=== PATIENT | male | born 1985 | race Caucasian/White ===

== ENCOUNTER 2018-10-25 20:45 | Emergency (ER) | payer SELFPAY ==
[2018-10-25 21:53] LABS: Influenza A Molecular NEGATIVE (Negative); Influenza B Molecular NEGATIVE (Negative)
[2018-10-25] MEDS ORDERED: Ondansetron ODT TAB* 4 MG PO ONE (22:17)
--- NOTE | 2018-10-25 22:43 | UC ---
Nausea/Vomiting/Diarrhea HPI - HPI Summary HPI Summary: PATIENT REPORTS 5 DAYS OF NAUSEA AND DIARRHEA. STATES HE HAS LOOSE STOOLS ALMOST EVERY HOUR. HAD HIGH FEVER 104 INITIALLY BUT THAT IS IMPROVING. TEMPERATURE TODAY WAS 100. HAS MILD COUGH AND ALSO COMPLAINS OF BODY ACHES AND SENSITIVITY TO SOUND AND LIGHT. FEELS UNWELL OVERALL. APPETITE IS DOWN ALTHOUGH HE IS ABLE TO TOLERATE BY MOUTH. - History of Current Complaint Chief Complaint: UCGeneralIllness Stated Complaint: FEVER, AND ACHES Time Seen by Provider: 10/25/18 21:33 Hx Obtained From: Patient Onset/Duration: Gradual Onset, Lasting Days, Still Present Timing: Constant Severity Initially: Moderate Severity Currently: Moderate Pain Intensity: 7 Pain Scale Used: 0-10 Numeric Character: Cramping Aggravating Factor(s): Nothing Alleviating Factor(s): Nothing Nausea/Vomiting Presence: Nauseated Diarrhea Presence: Yes Diarrhea Frequency: Every 1-2 hours Diarrhea Duration: 3-7 days Diarrhea Characteristics: Watery - Allergies/Home Medications Allergies/Adverse Reactions: Allergies Allergy/AdvReac Type Severity Reaction Status Date / Time No Known Allergies Allergy Verified 10/25/18 21:11 PMH/Surg Hx/FS Hx/Imm Hx Previously Healthy: Yes Other History Of: Negative For: HIV, Hepatitis B, Hepatitis C - Surgical History Surgical History: None - Family History Known Family History: Positive: Non-Contributory - Social History Alcohol Use: Weekly Substance Use Type: None Smoking Status (MU): Former Smoker Length of Time of Smoking/Using Tobacco: 4 years When Did the Patient Quit Smoking/Using Tobacco: 10 years ago Review of Systems All Other Systems Reviewed And Are Negative: Yes Constitutional: Positive: Fever, Fatigue Eyes: Positive: Photophobia Respiratory: Positive: Cough Cardiovascular: Positive: Negative Gastrointestinal: Positive: Diarrhea, Nausea. Negative: Vomiting Musculoskeletal: Positive: Myalgia Physical Exam Triage Information Reviewed: Yes Appearance: No Pain Distress, Well-Nourished, Ill-Appearing - APPEARS FATIGUED Vital Signs: Initial Vital Signs Temp 96.8 F 10/25/18 21:03 Pulse 89 10/25/18 21:03 Resp 16 10/25/18 21:03 BP 131/81 10/25/18 21:03 Pulse Ox 99 10/25/18 21:03 Laboratory Tests 10/25/18 21:40 Influenza A (Rapid) Negative Influenza B (Rapid) Negative Vital Signs Reviewed: Yes Eyes: Positive: Conjunctiva Clear ENT: Positive: Hearing grossly normal, Pharynx normal, TMs normal Neck: Positive: Supple, Nontender, No Lymphadenopathy Respiratory Exam: Normal Cardiovascular Exam: Normal Abdomen Description: Positive: Soft, Other: - MILD TENDERNESS DIFFUSELY. NO REBOUND OR RIGIDITY. Negative: CVA Tenderness (R), CVA Tenderness (L), Distended, Guarding Bowel Sounds: Positive: Present Musculoskeletal: Positive: No Edema Neurological: Positive: Alert Psychological: Positive: Age Appropriate Behavior Skin: Negative: Rashes Naus/Vom/Diarrhea Course/Dx - Course Course Of Treatment: FLU SWAB NEGATIVE. WHILE IN THE UC PATIENT STATES THAT HE IS ACTUALLY STARTING TO FEEL BETTER. WHEN ASKED IF HE COULD LEAVE A STOOL SAMPLE HE PRODUCED A SOLID STOOL WHICH HE SAID WAS SURPRISING. HAVE SENT IT FOR TESTING. ZOFRAN FOR NAUSEA. CBC DRAWN TODAY. TO ER IF SX WORSEN. - Differential Dx/Diagnosis Provider Diagnosis: Acute diarrhea Condition At Discharge: Stable Discharge - Sign-Out/Discharge Documenting (check all that apply): Patient Departure All imaging exams completed and their final reports reviewed: No Studies - Discharge Plan Condition: Stable Disposition: HOME Prescriptions: Ondansetron ODT TAB* [Zofran Odt TAB*] 4 mg PO Q6H PRN #20 tab.odt PRN Reason: Nausea/Vomiting Patient Education Materials: Acute Diarrhea (ED), Viral Syndrome (ED) Referrals: Mario Chakraborty MD [Primary Care Provider] - Additional Instructions: FLU SWAB NEGATIVE. YOUR SYMPTOMS SEEM IMPROVED SINCE BEING HERE IN THE . HOPEFULLY YOU WILL CONTINUE TO IMPROVE OVER THE NEXT FEW DAYS. WE HAVE SENT YOUR STOOL FOR TESTING. CBC DRAWN. ZOFRAN FOR NAUSEA. ENSURE ADEQUATE HYDRATION. CLEAR LIQUIDS, BLAND DIET. AVOID CAFFEINE, DAIRY, GREASY, SPICY FOODS. ONCE YOU ARE TOLERATING CLEAR LIQUIDS YOU CAN ADVANCE TO SIMPLE, BLAND FOODS. GO TO THE ER IF YOU DEVELOP WORSENING FEVER, ABDOMINAL PAIN OR ARE UNABLE TO TOLERATE ANYTHING BY MOUTH OR IF ANY OTHER CONCERNING SYMPTOMS DEVELOP. - Billing Disposition and Condition Condition: STABLE Disposition: Home
[2018-10-25 22:58] VITALS: BP 134/77
[2018-10-26 10:22] LABS: Hematocrit 41 % (42-52); Hemoglobin 14.6 g/dl (14.0-18.0); Mean Corpuscular HGB Conc 35 g/dl (31-36); Mean Corpuscular Hemoglobin 32 pg (27-31); Mean Corpuscular Volume 89 fL (80-94); Mean Platelet Volume 9.7 fL (7.4-10.4); Platelet Count 120 10^3/ul (150-450); Red Blood Count 4.64 10^6/ul (4.00-5.40); Red Cell Distribution Width 12 % (10.5-15); White Blood Count 15.4 10^3/ul (3.5-10.8)
[2018-10-26 11:34] LABS: ABS Basophils 0.1 10^3/ul (0-0.2); ABS Eosinophils 0 10^3/ul (0-0.6); ABS Lymphocytes 1.4 10^3/ul (1.0-4.8); ABS Monocytes 1.2 10^3/ul (0-0.8); ABS Neutrophils 12.7 10^3/ul (1.5-7.7); ABS Nucleated RBC 0 10^3/ul; Eosinophil % 0 %; Lymphocyte % 9.2 %; Nucleated Red Blood Cells % 0.1
--- NOTE | 2018-10-26 16:02 | UC ---
- Progress Note Progress Note: Lab results and most of the stool results come back. WBC count is elevated at 15.4 thousand. All the stool results are negative but shiga toxin and stool culture are still pending. Nursing to call patient and ensure that he has not gotten any worse. If he has got worse he should seek medical attention if he continues the same hours improving then we will await the final stool culture and Shiga toxin results. Course/Dx - Diagnoses Provider Diagnoses: Acute diarrhea Discharge - Sign-Out/Discharge Documenting (check all that apply): Patient Departure All imaging exams completed and their final reports reviewed: No Studies - Discharge Plan Condition: Stable Disposition: HOME Prescriptions: Ondansetron ODT TAB* [Zofran Odt TAB*] 4 mg PO Q6H PRN #20 tab.odt PRN Reason: Nausea/Vomiting Patient Education Materials: Acute Diarrhea (ED), Viral Syndrome (ED) Referrals: Mario Chakraborty MD [Primary Care Provider] - Additional Instructions: FLU SWAB NEGATIVE. YOUR SYMPTOMS SEEM IMPROVED SINCE BEING HERE IN THE . HOPEFULLY YOU WILL CONTINUE TO IMPROVE OVER THE NEXT FEW DAYS. WE HAVE SENT YOUR STOOL FOR TESTING. CBC DRAWN. ZOFRAN FOR NAUSEA. ENSURE ADEQUATE HYDRATION. CLEAR LIQUIDS, BLAND DIET. AVOID CAFFEINE, DAIRY, GREASY, SPICY FOODS. ONCE YOU ARE TOLERATING CLEAR LIQUIDS YOU CAN ADVANCE TO SIMPLE, BLAND FOODS. GO TO THE ER IF YOU DEVELOP WORSENING FEVER, ABDOMINAL PAIN OR ARE UNABLE TO TOLERATE ANYTHING BY MOUTH OR IF ANY OTHER CONCERNING SYMPTOMS DEVELOP. - Billing Disposition and Condition Condition: STABLE Disposition: Home
== END 2018-10-25 22:59 | disposition home or self-care (01) ==
LOC: UCEAST 20:45
DX: R19.7 Diarrhea, unspecified (principal); R11.0 Nausea; R50.9 Fever, unspecified; H53.149 Visual discomfort, unspecified; M79.10 Myalgia, unspecified site; Z87.891 Personal history of nicotine dependence
CPT/HCPCS: 36415; 83630; 85025; 87045; 87046; 87328; 87329; 87899; 99212; A9270-GY; G0463

== ENCOUNTER 2018-10-26 13:11 | Inpatient (IN) | payer SELFPAY ==
[2018-10-26] MEDS ORDERED: NS 0.9% 1000 ML** 1,000 ML IV.FLUID IV ONE (13:36)
[2018-10-26] MEDS ORDERED: Acetaminophen TAB* 325 MG PO ONE ×2 (13:37→20:01)
--- NOTE | 2018-10-26 13:58 | ED ---
HPI Febrile Illness - HPI Summary HPI Summary: 33-year-old male presents with fever nausea vomiting diarrhea for the past 6 days. He states that he's been having a mild cough. He admits to body aches. He states that he just feels very weak. He states he's been sweating a lot. He admits to sinus pressure. He states he has history of sinusitis. denies any urinary symptoms. admits to lower abdominal pain. no blood in stool. no recent antibiotics. no headache or neck stiffness. admits to generalized muscle aches. was seen at urgent care and flu was negative yesterday. states that feels that is very sensitive to touch, smells, sounds. denies any chest pain or SOB. Denies any history of DM or HTN. has no medical conditions. father had mi 70. was a smokers. - History of Current Complaint Chief Complaint: EDFluSymptoms Time Seen by Provider: 10/26/18 13:26 Pain Intensity: 0 - Allergy/Home Medications Allergies/Adverse Reactions: Allergies Allergy/AdvReac Type Severity Reaction Status Date / Time No Known Allergies Allergy Verified 10/25/18 21:11 PMH/Surg Hx/FS Hx/Imm Hx Endocrine/Hematology History: Denies: Hx Diabetes, Hx Thyroid Disease Cardiovascular History: Denies: Hx Congestive Heart Failure, Hx Deep Vein Thrombosis, Hx Hypertension , Hx Myocardial Infarction, Hx Pacemaker/ICD Respiratory History: Denies: Hx Asthma, Hx Chronic Obstructive Pulmonary Disease (COPD), Hx Lung Cancer, Hx Pneumonia, Hx Pulmonary Embolism GI History: Denies: Hx Gall Bladder Disease, Hx Gastrointestinal Bleed, Hx Ulcer, Hx Urosepsis History: Denies: Hx Kidney Stones, Hx Renal Disease Neurological History: Denies: Hx Dementia, Hx Migraine, Hx Seizures, Hx Transient Ischemic Attacks (TIA) Psychiatric History: Denies: Hx Anxiety, Hx Depression, Hx Schizophrenia, Hx Bipolar Disorder Infectious Disease History: No Infectious Disease History: Denies: History Other Infectious Disease, Traveled Outside the [place] in Last 30 Days - Family History Known Family History: Positive: Cardiac Disease - dad DC 70, Non-Contributory - Social History Alcohol Use: Weekly Substance Use Type: Reports: None Smoking Status (MU): Former Smoker Length of Time of Smoking/Using Tobacco: 4 years Review of Systems Positive: Fever Negative: Chest Pain Positive: Cough. Negative: Shortness Of Breath Positive: Abdominal Pain, Vomiting, Diarrhea, Nausea Positive: Weakness. Negative: Headache All Other Systems Reviewed And Are Negative: Yes Physical Exam Triage Information Reviewed: Yes Vital Signs On Initial Exam: Initial Vitals Temp Pulse Resp BP Pulse Ox 98.2 F 103 16 122/91 97 10/26/18 13:21 10/26/18 13:21 10/26/18 13:21 10/26/18 13:21 10/26/18 13:21 Vital Signs Reviewed: Yes Appearance: Positive: Ill-Appearing Skin: Positive: Warm, Dry Head/Face: Positive: Normal Head/Face Inspection Eyes: Positive: Normal, EOMI, BOSSMAN, Conjunctiva Clear ENT: Positive: Normal ENT inspection, Pharynx normal, TMs normal Neck: Positive: Supple, Nontender, No Lymphadenopathy. Negative: Nuchal Rigidity Respiratory/Lung Sounds: Positive: Clear to Auscultation, Breath Sounds Present Cardiovascular: Positive: Normal, RRR Abdomen Description: Positive: Soft, Other: - mild lower abdominal pain Bowel Sounds: Positive: Present Musculoskeletal: Positive: Normal Neurological: Positive: Normal Psychiatric: Positive: Normal Diagnostics - Vital Signs Vital Signs Temp Pulse Resp BP Pulse Ox 10/26/18 13:21 98.2 F 103 16 122/91 97 - Laboratory Result Diagrams: 10/26/18 14:01 10/26/18 14:01 Lab Statement: Any lab studies that have been ordered have been reviewed, and results considered in the medical decision making process. - EKG No standard instances Cardiac Rate: NL EKG Rhythm: Sinus Rhythm Summary of EKG Findings: sinus rhythm 2nd Cardiac Rate: NL EKG Rhythm: Sinus Rhythm EKG Comparison: No Significant Change Summary of EKG Findings: sinus rhythm Re-Evaluation - Re-Evaluation First Eval Re-Evaluation Time: 15:19 Change: Improved Comment: feeling better Second Eval Re-Evaluation Time: 17:20 Change: Improved Comment: just feeling weak after 4 liters of fluid Course/Dx - Course Course Of Treatment: 33-year-old male presents with fever nausea vomiting diarrhea for the past 6 days. He states that he's been having a mild cough. He states that he just feels very weak. admits to lower abdominal pain. no blood in stool. no chest pain or SOB. on exam patient is diaphoretic. lungs CTA. no meningeal signs. mild tenderness lower abd. wbc 14. ekg shows sinus rhythm. troponin elevated at .25. crp elevated. gave fluids and feeling better. discussed with dr hewitt who recommends repeat troponin for elevated level. gave aspirin. d-dimer elevated so will get CTA. included abd as is having lower abd pain. patient signed out to Augustine pending second troponin and CTA chest, abd, pelvis for dispo - Febrile Illness Differential Diagnoses: Bacteremia, Pneumonia, Sepsis - Diagnoses Provider Diagnoses: Diarrhea, Diaphoresis, Febrile illness Discharge - Sign-Out/Discharge Documenting (check all that apply): Sign-Out Patient Signing out patient TO: Augustine Kumari - Discharge Plan Referrals: Mario Chakraborty MD [Primary Care Provider] -
[2018-10-26 14:20] LABS: ABS Basophils 0 10^3/ul (0-0.2); ABS Eosinophils 0.1 10^3/ul (0-0.6); ABS Lymphocytes 0.6 10^3/ul (1.0-4.8); ABS Monocytes 1.3 10^3/ul (0-0.8); ABS Nucleated RBC 0 10^3/ul; Eosinophil % 0.5 %; Hematocrit 39 % (42-52); Hemoglobin 13.7 g/dl (14.0-18.0); Lymphocyte % 4.2 %; Mean Corpuscular HGB Conc 35 g/dl (31-36); Mean Corpuscular Hemoglobin 31 pg (27-31); Mean Corpuscular Volume 88 fL (80-94); Mean Platelet Volume 9.6 fL (7.4-10.4); Nucleated Red Blood Cells % 0; Platelet Count 106 10^3/ul (150-450); Red Blood Count 4.45 10^6/ul (4.00-5.40); Red Cell Distribution Width 12 % (10.5-15)
[2018-10-26 14:31] LABS: Activated Partial Thrombo Time 29.8 seconds (26.0-36.3); INR 1.23 (0.77-1.02)
[2018-10-26 14:59] LABS: Albumin 3.9 g/dL (3.2-5.2); Albumin/Globulin Ratio 1.2 (1-3); BUN/Creatinine Ratio 14.3 (8-20); C Reactive Protein 175.48 mg/L (<8.01); Calcium 8.9 mg/dL (8.6-10.3); EGFR Non-African American 106.6 (>60); Globulin 3.2 g/dL (2-4); Potassium 3.7 mmol/L (3.5-5.0); Total Protein 7.1 g/dL (6.4-8.9)
[2018-10-26 15:01] LABS: Troponin I 0.25 ng/mL (<0.04)
[2018-10-26] MEDS ORDERED: NS 0.9% 1000 ML** 1,000 ML IV ONE ×2 (15:11→20:40)
[2018-10-26] MEDS ORDERED: Aspirin 81 mg CHEW TAB* 81 MG TAB.CHEW PO ONE (15:24)
[2018-10-26 15:46] LABS: TSH (Thyroid Stimulating Horm) 2.14 mcIU/mL (0.34-5.60)
[2018-10-26] MEDS ORDERED: Iohexol 350* (CONTRAST) 500 ML MDV IV ONE ×2 (16:19→17:41)
[2018-10-26 16:55] LABS: Urine Appearance Cloudy; Urine Bacteria Absent (Absent); Urine Bilirubin Negative (Negative); Urine Blood 1+ (Negative); Urine Color Amber; Urine Glucose 1+(50 mg/dL) (Negative); Urine Ketones Negative (Negative); Urine Nitrite Negative (Negative); Urine Protein 2+(100 mg/dL) (Negative); Urine Red Blood Cell Trace(0-2/hpf) (Absent); Urine Specific Gravity 1.024 (1.010-1.030); Urine Squamous Epithelial Cell Present (Absent); Urine Urobilinogen Positive (Negative); Urine White Blood Cell 3+(>20/hpf) (Absent)
[2018-10-26 18:56] LABS: Barbiturates Urine Screen None Detected (None Detect); Benzodiazepine Urine Screen None Detected (None Detect); Urine Cannabinoids Screen Presumptive Positive (None Detect)
[2018-10-26] MEDS ORDERED: Piperacillin/Tazobac ADVAN(*) 3.375 GM in NS 0.9% 100 ML* 100 ML IVPB ONE (19:34)
[2018-10-26] MEDS ORDERED: Ondansetron INJ* 2 MG/ML VIAL IV PRN (22:06)
[2018-10-26] MEDS ORDERED: NS 0.9% 1000 ML** 1,000 ML IV SCH (22:15)
[2018-10-26] MEDS: Acetaminophen TAB* 325 MG PO PRN (22:28)
[2018-10-26] MEDS ORDERED: Vancomycin(*) 1,000 MG in NS 0.9% 250 ML* 250 ML IVPB SCH (23:00)
[2018-10-26] MEDS ORDERED: Dexamethasone IV* 4 MG/ML 5 ML VIAL (20 MG) IVPB ONE (23:20)
--- NOTE | 2018-10-27 00:07 | PN ---
Progress Note - Progress Note Date of Service: 10/27/18 Note: Patient signed out to me by Brittany BUCHANAN pending results of CTA and CT abdomen and pelvis. CTA negative. CT abdomen and pelvis positive for abnormal spleen, liver, pyelonephritis and pericholecystic fluid. Results discussed with GI Dr. Stratton, surgery Dr. Farley, ID Dr. Hall who all recommended admission for further evaluation. WBC 14. Febrile up to 102, resolved with antipyretic medication. Intermittently tachycardic. 3 serial EKGs, first and third normal sinus, second positive for A. fib. 5 L normal saline given. Started on Zosyn. Patient also has focal deficit in left upper extremity, states symptoms started at 11 AM today. Patient first mentioned symptoms this evening around 10 PM, states he forgot to advise providers of these focal symptoms amidst all his other symptoms. CT brain positive for vasogenic edema secondary to possible lesion or stroke. Discussed patient with neurosurgery Dr. Hernandez who recommended MRI with and without contrast. Attending Dr. Velásquez also evaluated patient for focal deficit which was positive in left upper extremity. Dr. Velásquez then Discussed brain CT with radiologist Dr. Henry who states stroke symptoms not from ischemic stroke, sx more likley due to malignancy or infection. Dr. Henry denies need for stat MRI. of our recommended Decadron 10 mg IV for patient. Results from CT abdomen and pelvis and brain, along with fever for one week, some swollen lymph nodes on physical exam suggest possible lymphoma. Patient will be admitted to ICU.
[2018-10-27] MEDS ORDERED: Cefepime 2 GM in Dextrose(*) 2 GM/50 ML BAG IV SCH (00:30)
[2018-10-27] MEDS ORDERED: Vancomycin per Pharmacy* NOTE FOLLOW UP PRN (00:34)
[2018-10-27] MEDS ORDERED: Vancomycin 1500 MG IV - x ONCE IVPB ONE ×2 (01:00)
[2018-10-27] MEDS ORDERED: Dexamethasone IV* 4 MG/ML 5 ML VIAL (20 MG) ONE (01:15)
[2018-10-27] MEDS ORDERED: Dexamethasone IV* 4 MG/ML 1 ML (4 MG) IV SLOW PU ONE (01:15)
--- NOTE | 2018-10-27 03:06 | HP ---
CC: Dr. Mario Chakraborty HISTORY AND PHYSICAL: DATE OF ADMISSION: 10/26/18 PRIMARY CARE PROVIDER: Mario Chakraborty MD CHIEF COMPLAINT: Fever, diarrhea. HISTORY OF PRESENT ILLNESS: This is a 33-year-old male with no significant past medical history, who now presents to the emergency room with complaints of fever and diarrhea ongoing for the past 6 days. The patient reports that he went to travel to [place] earlier in August at which point he was in [place], lived with a local friend, and ate regular food and had tap water. His symptoms started about 1-1/2 weeks ago when he started to develop diarrhea associated with fever, generalized body ache, nausea, and generalized abdominal pain. 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 He is unsure as to what the reason behind the antibiotics was. However, the patient reports that the antibiotics did not help him. He was seen at the urgent care yesterday and he continued to feel very ill, so he comes to the emergency room now. He reports that the fever has been as high as 104.7 degrees Fahrenheit. This is associated with occasional palpitations, having abdominal pain which is generalized, but at times he feels it is more prominent at the right upper quadrant region; constant pain 8/10 with no relation to activity or food. He also reports that he is having diarrhea, loose bowel movements 4 to 5 episodes a day without any blood or mucus in it. He is having nausea; however, no vomiting. Does not have any chest pain or shortness of breath. In the emergency room, the patient had blood work as well as imaging done. Imaging was abnormal; it showed possible splenic infarct, elevated D- dimer, possible findings of pericholecystic fluid and subsequently, the hospitalist service was called. In the emergency room, the emergency room physician collections assistant also spoke with Infectious Disease, Dr. Huntley, general surgeon, Dr. Farley regarding the splenic infarct and Dr. Farley did not feel that it was necessary to have urgent intervention. Also salesperson yard goods, Dr. Stratton was also contacted. PAST MEDICAL HISTORY: None. PAST SURGICAL HISTORY: None. HOME MEDICATIONS: None. The patient finished a course of antibiotics; however , he does not recall the name. ALLERGIES: No known drug allergies. FAMILY HISTORY: Mother: Hypertension. Father: Diabetes. No family history of spleen issues or any leukemia or lymphoma. Grandfather on the mother's side had rectal cancer. SOCIAL HISTORY: The patient lives at home, he works at [employer]. He does not smoke, he used to use marijuana; however, he quit in the New Year, roughly 2 months ago. Infrequent alcohol use. REVIEW OF SYSTEMS: He is having fevers, chills, rigors, does not have any sore throat, does not have any trouble swallowing, no changes in his vision or hearing. He does not have any chest pain or shortness of breath; however, he does have palpitations. He also has sweats with diaphoresis, he is having abdominal pain with nausea and diarrhea. Does not have any burning upon urination, no hesitancy. He noted that he is having some lesion, black discoloration at the left small finger. PHYSICAL EXAMINATION GENERAL: This is a well-developed, well-nourished male, toxic appearing, acutely ill appearing, lying in an ER stretcher in no distress. He is diaphoretic. VITAL SIGNS: Blood pressure of 144/94, pulse of 109, respiratory rate of 18, temperature currently of 99.9 Fahrenheit, T-max of 102.8. HEENT: Pupils are equal, round, reactive to light. I did not appreciate any Aguirre spots on my ophthalmic exam. Pupils are equal, round, reactive to light, oral mucosa is dry, there is no pharyngeal erythema or tonsillar exudates. There are no lesions in his mouth. Sclerae not icteric. LUNGS: There is no tachypnea. No use of accessory muscles. Lungs are clear with no wheezing, rales, or rhonchi. HEART: There is no chest wall tenderness, regular tachycardia. There is a 2/6 systolic murmur best heard at the right upper sternal border. ABDOMEN: Bowel sounds are normoactive in all 4 quadrants, abdomen is mildly tender throughout, no rigidity or guarding. EXTREMITIES: There is no lower extremity edema, no calf tenderness. At the left small finger 5th digit, there is an area of hemorrhagic macular lesion. At the right second toe as well as the left great toe and the 3rd toe, there is a hemorrhagic macular lesion identified, nontender. NEUROLOGIC: Alert and oriented x3 with speech being clear, there is no facial droop. Motor is 5/5 in all 4 extremities. LABORATORY DATA/DIAGNOSTIC STUDIES: White count of 14.0, platelets of 106,000 , neutrophil percent of 85.7 with absolute neutrophil count of 12, absolute monocyte of 1.3. D-dimer 1050, INR 1.23, APTT of 29.8. Sodium of 127, chloride of 92, potassium of 3.7, carbon dioxide of 23, anion gap of 12, BUN of 12, creatinine of 0.84. Lactic acid of 2.0. Total bilirubin of 2.00, AST of 46 , ALT of 52. Troponin of 0.25, second troponin of 0.21. CRP of 175. Albumin of 3.9. TSH of 2.14. Urinalysis shows hyaline casts, urine glucose of 1+, wbc of 3+, squamous cells present, protein of 2+. Urine toxicology shows positive cannabinoids. Imaging shows initial EKG showed normal sinus rhythm, repeat EKG showed findings suggestive of atrial fibrillation. CTA of the chest, abdomen, and pelvis showed no pulmonary embolism, bilateral striated nephrogram with most likely pyelonephritis in this age group. Abnormal spleen with multiple peripheral areas of abnormal low attenuation with delayed imaging, largest area is 4.1 x 2.4 cm. This may represent areas of developing infarct or underlying lesion. Abnormal liver with scattered area of abnormal attenuation intersegmental right lobe measuring 2.7 x 2.6 and there is also pericholecystic fluid without evidence of a stone. Mild periportal edema in the liver, nonspecific finding, could be seen with hepatitis or fluid overload among other etiologies. Gallbladder ultrasound was done, which is inconsistent with cholecystitis. Brain CT is done, results are pending. Chest x-ray was done, which shows stigmata of probable obstructive lung disease , no acute pulmonary or cardiac processes are evident. IMPRESSION AND PLAN: 1. The patient is having findings suggestive of acute endocarditis. We will admit the patient to the intensive care unit with IV fluids. We will start the patient on vancomycin, cefepime. Infectious Disease, Dr. Huntley was called by the emergency room physician who will consult the patient in the morning. We will follow up with his recommendations. Ordered echocardiogram, blood cultures sent. 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 General Surgery was contacted. At this point, the patient does not require any acute intervention regarding this. We will monitor this. 3. Of note, we have ordered a CAT scan to make sure that there is no emboli or hemorrhagic conversions in the brain. At this point, the patient also has thrombocytopenia and it is unclear as to the etiology recording the splenic infarct, so at this point we will hold off on anticoagulation. We will get a CT head to rule out lesions in the brain. If there is a lesion in the brain, would be a contraindications for systemic anticoagulation. 4. Pericholecystic fluid. This could be secondary to generalized illness. At this point, he does not seem to have any acute cholecystitis. We will monitor the patient. 5. Signs suggestive of peripheral edema suggestive of possible hepatitis. We will order hepatitis A, B, and C antibodies. 6. Elevated troponin: could be due demand ischemia, received aspirin in the emergency room, no ST elevation noted on EKG. Will monitor. 7. For the DVT prophylaxis, we will start the patient on heparin subcucatenous vs SCD depending on the CT head. The patient will be admitted to the intensive care unit. I also spoke with Dr. Patricia, the senior payroll administrator regarding the case, he agrees with the plan. The patient is critically ill, time spent with the patient 90 minutes face-to- face. Answered all questions, also speaking with the consultants. [id number]/JAVED #: [id number] JOSTIN
[2018-10-27 06:58] LABS: Hematocrit 30 % (42-52); Hemoglobin 10.2 g/dl (14.0-18.0); Mean Corpuscular HGB Conc 35 g/dl (31-36); Mean Corpuscular Hemoglobin 31 pg (27-31); Mean Corpuscular Volume 90 fL (80-94); Red Blood Count 3.27 10^6/ul (4.00-5.40); Red Cell Distribution Width 12 % (10.5-15); White Blood Count 13.8 10^3/ul (3.5-10.8)
[2018-10-27 07:35] LABS: Platelet Count 84 10^3/ul (150-450)
[2018-10-27 07:38] LABS: Immature Granulocytes 17 % (0-9); Lymphocytes % 5 %; Monocytes % 5 %; Myelocytes % 1 % (0-1); Neutrophil % 73 %
[2018-10-27 07:42] LABS: ABS Neutrophils 12.4 10^3/ul (1.5-7.7)
[2018-10-27] MEDS: Oxacillin(*) 2 GM in NS 0.9% 100 ML* 100 ML IVPB SCH ×4 (09:18→21:10)
[2018-10-27] MEDS ORDERED: Flumazenil* 0.1 MG/ML 5 ML MDV ONE (09:21)
[2018-10-27] MEDS ORDERED: fentaNYL* 50 MCG/ML 2 ML VIAL (100 MCG VIAL) ONE (09:21)
[2018-10-27] MEDS ORDERED: Naloxone* 0.4 MG/ML 1 ML VIAL ONE (09:21)
[2018-10-27] MEDS ORDERED: Midazolam* 1 MG/ML 10 ML VIAL (10 MG) ONE ×2 (09:22→10:24)
[2018-10-27] MEDS ORDERED: Lidocaine 2% VISCOUS* 15 ML UDC ONE (09:22)
--- NOTE | 2018-10-27 09:30 | HP ---
Duplicate, error. MTDD
[2018-10-27] MEDS ORDERED: Vancomycin(*) 1,250 MG in NS 0.9% 250 ML* 250 ML IVPB SCH (10:00)
[2018-10-27] MEDS ORDERED: NS 0.9% 1000 ML** 1,000 ML IV SCH (12:09)
[2018-10-27] MEDS: NS 0.9% 1000 ML** 1,000 ML IV SCH (13:09)
--- NOTE | 2018-10-27 13:13 | CONSULT ---
Consult Consult: Consultation Note -- Critical Care Requesting Physician: Dr Ventura Reason for consult: sepsis, endocarditis Limitations in history/physical: mild delirium Date of consult: 10/27/2018 HPI: 33y M with no PMHX. Comes to ER 10/26 for complaints of fevers x 1-2 weeks. Associated with diarrhea. Noted to have taken a recent trip to [place] about 4 weeks ago but symptoms started 1.5 weeks back. no cough/sob/sputum. no blood in stool. no URI symptoms. No history of drug use. in ER he was febrile 102.8, tachycardic, BP 120s. He had CT abd/chest/pelvis imaging demonstrating what appears to be hypodense lesions in spleen, liver and even in kidneys, which may be consistent with possible infarcts, as well as periportal edema, mild fluid around the gallbladder. A GB ultrasound showed mildly thickened GB, but no murphys sign, no obstruction noted, some perichole fluid+. This morning he has grown out MSSA in all blood cultures. A TTE was performed as well as a ALEK, demonstrating 1cm+ vegetations on both Tricuspid valve and on the Bicuspid aortic valve, likely on LVOT side. He is currently sleepy, arousagble, follows commands. mild tachycardia. BP stable. making urine. no distress. moves all ext. ROS: limited due to sedation and some delirium PMHx: no pmhx PSHx: no pshx Family History: cardiac disease in father, [place] at age 70 Social History: Alcohol-weekly, Smoking-former smoker, Drug use-none; , [place] Allergies: Allergies Allergy/AdvReac Type Severity Reaction Status Date / Time No Known Allergies Allergy Verified 10/25/18 21:11 Home Medications: Ibuprofen TAB* [Motrin TAB* 400 MG] 200 mg PO Q6H PRN 10/31/15 [History Confirmed 10/26/18] Ondansetron ODT TAB* [Zofran Odt TAB*] 4 mg PO Q6H PRN #20 tab.odt 10/25/18 [Rx Confirmed 10/26/18] Tele: sinus tachy, some episodic afib noted overnight Vitals: Vital Signs Temp 99.7 F 10/27/18 12:50 Pulse 107 10/27/18 12:30 Resp 24 10/27/18 12:30 BP 125/75 02/08/19 12:30 Pulse Ox 96 10/27/18 12:30 Intake & Output 10/26/18 10/27/18 10/27/18 18:59 06:59 18:59 Intake Total 3590 794 0 Output Total 1150 700 Balance 3590 -356 -700 Weight 86.183 kg 93.7 kg Intake: IV Fluids 3590 424 NS 324 IVPB 370 ABX 370 Oral 0 Output: Urine 1150 700 O2/Vent: RA Infusions: heplock Current Medications: Acetaminophen (Tylenol Tab*) 650 mg PO Q6H PRN PRN Reason: FEVER Last Admin: 10/26/18 22:28 Dose: 650 mg Oxacillin Sodium 2 gm/ Sodium (Chloride) 100 mls @ 200 mls/hr IVPB Q4H [facility] Last Admin: 10/27/18 12:50 Dose: 200 mls/hr Sodium Chloride (Ns 0.9% 1000 Ml) 1,000 mls @ 100 mls/hr IV PER RATE [facility] Last Admin: 10/27/18 12:34 Dose: 100 mls/hr Ondansetron HCl (Zofran Inj*) 4 mg IV Q6H PRN PRN Reason: NAUSEA Physical Exam: General: awakens, slightly sleepy now, no distress, no diaphoresis Head: normocephalic, atraumatic HEENT: no pallor, no icterus, moist mucous membranes Neck: soft, supple, no jvd, no stridor CVS: tachy, regular, no murmur Resp: bilateral air entry, no rhales/wheeze/rhonchi, no acc muscle use Abdomen: soft, nontender, nondistended, bowel sounds+ Ext: pulses+, warm, no edema Skin: intact Neuro: awakens, sleepy, unable to assess orientation now, moving all extremities , no facial droop noted Labs: Laboratory Results - last 24 hr 10/26/18 10/26/18 10/26/18 14:01 14:01 14:01 WBC 14.0 H RBC 4.45 Hgb 13.7 L Hct 39 L MCV 88 MCH 31 MCHC 35 RDW 12 Plt Count 106 L MPV 9.6 Neut % (Auto) 85.7 Lymph % (Auto) 4.2 Bailey % (Auto) 9.4 Eos % (Auto) 0.5 Baso % (Auto) 0.2 Absolute Neuts (auto) 12.0 H Absolute Lymphs (auto) 0.6 L Absolute Monos (auto) 1.3 H Absolute Eos (auto) 0.1 Absolute Basos (auto) 0 Absolute Nucleated RBC 0 Immature Gran % Neutrophils % Band Neutrophils % Lymphocytes % Monocytes % Myelocytes % Nucleated RBC % 0 Abs Neuts (Manual) Abs Lymphs (Manual) Abs Monocytes (Manual) Normal RBC Morphology Hem Pathologist Commnt INR (Anticoag Therapy) 1.23 H APTT 29.8 D-Dimer, Quantitative > 1050 H Sodium 127 L Potassium 3.7 Chloride 92 L Carbon Dioxide 23 Anion Gap 12 H BUN 12 Creatinine 0.84 Est GFR ( Amer) 129.0 Est GFR (Non-Af Amer) 106.6 BUN/Creatinine Ratio 14.3 Glucose 178 H Lactic Acid Calcium 8.9 Total Bilirubin 2.00 H AST 46 H ALT 52 Alkaline Phosphatase 75 Troponin I 0.25 H* C-Reactive Protein 175.48 H Total Protein 7.1 Albumin 3.9 Globulin 3.2 Albumin/Globulin Ratio 1.2 TSH 2.14 Urine Color Urine Appearance Urine pH Ur Specific [place] Urine Protein Urine Ketones Urine Blood Urine Nitrate Urine Bilirubin Urine Urobilinogen Ur Leukocyte Esterase Urine WBC (Auto) Urine RBC (Auto) Ur Squamous Epith Cells Urine Bacteria Hyaline Casts Urine Glucose Urine Opiates Screen Ur Barbiturates Screen Ur Phencyclidine Scrn Ur Amphetamines Screen U Benzodiazepines Scrn Urine Cocaine Screen U Cannabinoids Screen 10/26/18 10/26/18 10/26/18 14:01 16:35 17:25 WBC RBC Hgb Hct MCV MCH MCHC RDW Plt Count MPV Neut % (Auto) Lymph % (Auto) Bailey % (Auto) Eos % (Auto) Baso % (Auto) Absolute Neuts (auto) Absolute Lymphs (auto) Absolute Monos (auto) Absolute Eos (auto) Absolute Basos (auto) Absolute Nucleated RBC Immature Gran % Neutrophils % Band Neutrophils % Lymphocytes % Monocytes % Myelocytes % Nucleated RBC % Abs Neuts (Manual) Abs Lymphs (Manual) Abs Monocytes (Manual) Normal RBC Morphology Hem Pathologist Commnt INR (Anticoag Therapy) APTT D-Dimer, Quantitative Sodium Potassium Chloride Carbon Dioxide Anion Gap BUN Creatinine Est GFR ( Amer) Est GFR (Non-Af Amer) BUN/Creatinine Ratio Glucose Lactic Acid 2.0 Calcium Total Bilirubin AST ALT Alkaline Phosphatase Troponin I 0.21 H* C-Reactive Protein Total Protein Albumin Globulin Albumin/Globulin Ratio TSH Urine Color Kya Urine Appearance Cloudy Urine pH 5.0 Ur Specific [place] 1.024 Urine Protein 2+(100 mg/dl) A Urine Ketones Negative Urine Blood 1+ A Urine Nitrate Negative Urine Bilirubin Negative Urine Urobilinogen Positive A Ur Leukocyte Esterase Trace A Urine WBC (Auto) 3+(>20/hpf) A Urine RBC (Auto) Trace(0-2/hpf) Ur Squamous Epith Cells Present A Urine Bacteria Absent Hyaline Casts Present A Urine Glucose 1+(50 mg/dl) A Urine Opiates Screen Ur Barbiturates Screen Ur Phencyclidine Scrn Ur Amphetamines Screen U Benzodiazepines Scrn Urine Cocaine Screen U Cannabinoids Screen 10/26/18 10/26/18 10/27/18 18:24 23:18 05:00 WBC RBC Hgb Hct MCV MCH MCHC RDW Plt Count MPV Neut % (Auto) Lymph % (Auto) Bailey % (Auto) Eos % (Auto) Baso % (Auto) Absolute Neuts (auto) Absolute Lymphs (auto) Absolute Monos (auto) Absolute Eos (auto) Absolute Basos (auto) Absolute Nucleated RBC Immature Gran % Neutrophils % Band Neutrophils % Lymphocytes % Monocytes % Myelocytes % Nucleated RBC % Abs Neuts (Manual) Abs Lymphs (Manual) Abs Monocytes (Manual) Normal RBC Morphology Hem Pathologist Commnt INR (Anticoag Therapy) APTT D-Dimer, Quantitative Sodium Potassium Chloride Carbon Dioxide Anion Gap BUN Creatinine Est GFR ( Amer) Est GFR (Non-Af Amer) BUN/Creatinine Ratio Glucose Lactic Acid Calcium Total Bilirubin AST ALT Alkaline Phosphatase Troponin I 0.38 H* 0.15 H* C-Reactive Protein Total Protein Albumin Globulin Albumin/Globulin Ratio TSH Urine Color Urine Appearance Urine pH Ur Specific [place] Urine Protein Urine Ketones Urine Blood Urine Nitrate Urine Bilirubin Urine Urobilinogen Ur Leukocyte Esterase Urine WBC (Auto) Urine RBC (Auto) Ur Squamous Epith Cells Urine Bacteria Hyaline Casts Urine Glucose Urine Opiates Screen None detected Ur Barbiturates Screen None detected Ur Phencyclidine Scrn None detected Ur Amphetamines Screen None detected U Benzodiazepines Scrn None detected Urine Cocaine Screen None detected U Cannabinoids Screen Presumptive positive A 10/27/18 06:20 WBC 13.8 H RBC 3.27 L Hgb 10.2 L Hct 30 L MCV 90 MCH 31 MCHC 35 RDW 12 Plt Count 84 L MPV 10.0 Neut % (Auto) Not Reportable Lymph % (Auto) Not Reportable Bailey % (Auto) Not Reportable Eos % (Auto) Not Reportable Baso % (Auto) Not Reportable Absolute Neuts (auto) Not Reportable Absolute Lymphs (auto) Not Reportable Absolute Monos (auto) Not Reportable Absolute Eos (auto) Not Reportable Absolute Basos (auto) Not Reportable Absolute Nucleated RBC Not Reportable Immature Gran % 17 H Neutrophils % 73 Band Neutrophils % 16 H Lymphocytes % 5 Monocytes % 5 Myelocytes % 1 Nucleated RBC % Not Reportable Abs Neuts (Manual) 12.4 H Abs Lymphs (Manual) 0.69 L Abs Monocytes (Manual) 0.69 Normal RBC Morphology Normal Hem Pathologist Commnt INR (Anticoag Therapy) APTT D-Dimer, Quantitative Sodium Potassium Chloride Carbon Dioxide Anion Gap BUN Creatinine Est GFR ( Amer) Est GFR (Non-Af Amer) BUN/Creatinine Ratio Glucose Lactic Acid Calcium Total Bilirubin AST ALT Alkaline Phosphatase Troponin I C-Reactive Protein Total Protein Albumin Globulin Albumin/Globulin Ratio TSH Urine Color Urine Appearance Urine pH Ur Specific [place] Urine Protein Urine Ketones Urine Blood Urine Nitrate Urine Bilirubin Urine Urobilinogen Ur Leukocyte Esterase Urine WBC (Auto) Urine RBC (Auto) Ur Squamous Epith Cells Urine Bacteria Hyaline Casts Urine Glucose Urine Opiates Screen Ur Barbiturates Screen Ur Phencyclidine Scrn Ur Amphetamines Screen U Benzodiazepines Scrn Urine Cocaine Screen U Cannabinoids Screen Imaging: cxr 10/26 - no acute process noted CT A/P/C - reviewed; areas of hypodensity or infarcts in spleen/liver/kidneys CT brain 10/26 - some right frontal hypodensity/edema noted Assessment: 33y M with no PMHX. Comes to ER 10/26 for complaints of fevers x 1-2 weeks. Associated with diarrhea. Noted to have taken a recent trip to [place] about 4 weeks ago but symptoms started 1.5 weeks back. no cough/sob/sputum. no blood in stool. no URI symptoms. No history of drug use. in ER he was febrile 102.8, tachycardic, BP 120s. He had CT abd/chest/pelvis imaging demonstrating what appears to be hypodense lesions in spleen, liver and even in kidneys, which may be consistent with possible infarcts, as well as periportal edema, mild fluid around the gallbladder. A GB ultrasound showed mildly thickened GB, but no murphys sign, no obstruction noted, some perichole fluid+. This morning he has grown out MSSA in all blood cultures. A TTE was performed as well as a ALEK, demonstrating 1cm+ vegetations on both Tricuspid valve and on the Bicuspid aortic valve, likely on LVOT side. 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 Neurochecks q2h for now. Asp Prec. Avoid BDZ. delirium prec. -will need MRI brain to further delinieat this lesion and other lesions -hold off any AC given infarcts -neuro consult for input CVS- Sepsis, hemodyn stable, mild tachy. Cont IVF NS. Follow urine output -noted some Afib?; will monitor for now. Hold off AC at this moment unless he demontrates Afib in ICU. HOld AC given cerebral emboli. -IV abx for MSSA bacteremia -Noted ALEK/TTE with vegetations on TV and AV, no overt valvular insuff noted -plan for CTS eval outside hospital, transfer planned Resp- no resp distress. on RA. Asp prec. ID- febrile 102. WBC with bandedemia+. Blood Cx 4/4 MSSA+. Now on oxacillin IV q4h (day#1). Evidence of septic emboli+. ID following. GI- NPO till mental status improved. Pepcid PO 20mg daily. Renal- Cr okay. K okay yesterday. Hyponatreimia. Check BMP today. Making urine. IVF NS 75cc/hr. Re-eval after labs Heme- hg stable. thrombocytopenia+. no AC. DVT proph with SCDs Endo- fingerstick prn. check hba1c. Musculsk- pressure ulcer prophylaxis. Bedrest. Wounds- none Nutrition- NPO till mental status improved DVT prophylaxis:SCDs GI prophylaxis: h2b Central Line: no Arterial Line: no Ansari Cathetor: no Disposition: Patient requires Critical Care/ICU for sepsis, endocarditis, evidence of septic emboli Patient Clinical Status: guarded Code Status: full code discussed with , plan for transfer to higher level of care for CTS eval and closer monitoring given vegetaions on TV and AV in setting of embolization. Holden Patricia MD [employer] (Electronically Signed)
--- NOTE | 2018-10-27 13:27 | CONS ---
CONSULTATION REPORT: DATE OF CONSULT: 10/27/18 REQUESTING PHYSICIAN: Dr. Ventura. CONSULTING SERVICE: Infectious Disease. REASON FOR CONSULT: Bacteremia. IMPRESSION: 1. Methicillin-sensitive Staphylococcus aureus bacteremia in the setting of fever and rigors with left arm weakness, [place] lesions, emboli to the brain by CT scan and has arm weakness, in the subcortical white matter which is either an infected emboli or an early abscess, emboli to the liver and spleen, and a transesophageal echocardiogram that shows a 1.3 x 0.9 cm tricuspid valve lesion and a 1 cm x 0.5 cm aortic valve in the setting of a bicuspid aortic valve. He is much improved today as opposed to last night apparently. 2. Positive troponin, suspect due to embolization in the coronary arteries. 3. Anemia, normocytic. RECOMMENDATIONS: I stopped vancomycin and cefepime and started oxacillin 2 g IV every 4 hours now that we have the transesophageal echocardiogram back. I discussed with the patient that I think it is reasonable he be evaluated by the cardiothoracic surgeon given the size of the remaining vegetations and risk of ongoing embolization. The main concern would be continued BOBBIN STRIPPER embolization while on antibiotics, which if it happened, it would be better for him to be in a hospital where there is cardiothoracic surgery available. We discussed his need for a few weeks of IV antibiotics pending the outcome in the next few days and I am happy to follow up with him after he is discharged to follow that therapy. HISTORY OF PRESENT ILLNESS: This is a 33-year-old man, who is otherwise healthy and who about a week ago developed fevers, chills, malaise and rigors with drenching sweats at night. He started to have some right-sided abdominal pain. He was seen in urgent care on 10/25/18 with predominantly complaints of diarrhea multiple times a day and watery. He had an influenza swab done that was negative by PCR. Because of worsening symptoms, he came to the ER yesterday , was febrile, leukocytosis of 14,000. I discussed the case with the ER provider overnight. I recommended cultures and antibiotics, which was vancomycin and cefepime. He was admitted by the hospitalist service this morning. The blood cultures were back 4/4 gram-positive cocci in cluster. The PCR is Staph aureus positive, MRSA negative. I changed his antibiotics to oxacillin, which he has been tolerating well this morning. He feels a lot better today. He notes left arm weakness and left handgrip weakness with some headaches, which are both improved; sore spots on his fingers and toes, which he suspects were due to shutting them in the door, though the confirms there was no door shutting going on. He had blurred vision overnight, which is better today. He has continued right-sided abdominal pain, which is not worse with food and his appetite is back a little bit today. He had a gallbladder ultrasound overnight, which was fairly unremarkable. He had a CT chest, abdomen , and pelvis that showed some heterogeneous changes in the liver and spleen suggestive of tumor versus infection and periportal edema in the liver, some pericholecystic fluid without stone disease in the gallbladder. There are bilateral nephrograms. He has no spine pain or joint pain. He has no prosthetic material present that he knows of. PAST MEDICAL HISTORY: None. ALLERGIES: None. MEDICATIONS: 1. Tylenol. 2. Aspirin. 3. He had dexamethasone overnight. 4. Zofran as needed. 5. Oxacillin 2 g IV every 4 hours. SOCIAL HISTORY: He lives in [place] with his . They live off the grid. 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 No recent medical procedures or skin or soft tissue injuries at work or at home. No injection drugs. FAMILY HISTORY: No recurrent infections or tuberculosis. REVIEW OF SYSTEMS: All negative except as noted above to a 14-point review of systems. PHYSICAL EXAM: Vital Signs: Temperature 37.6, heart rate is 110, respiratory rate 18, blood pressure 150/86, oxygen saturation 100% on room air. In general , he is awake, not in distress. Neurologic: He is oriented x3. Follows all commands. Cranial nerves II through XII are intact. The strength in the left biceps and triceps is 4/5 and he has weakened left handgrip. Otherwise, strength in the right upper and lower extremities is 5/5 and there is no lower extremity clonus. Sensation is intact to light touch in the upper and lower extremities bilaterally. HEENT: There is no conjunctival hemorrhage. Oropharynx without lesions. Neck is supple, without mass. Heart is regular and tachycardic, without murmurs. Lungs are clear to auscultation bilaterally. Abdomen: Soft, nontender, nondistended. There are bowel sounds present. Skin : There is no rash. There are on the right second and third fingers and right second toe and left great toe some diffuse erythema with violaceous discoloration and tender nodules. LABORATORY DATA: White blood cell count 13, hemoglobin 10 down from 13, MCV 90 , platelets 84 down from 106. Creatinine 0.8. Bilirubin 2. Troponin this morning 0.15, peaked to 0.38 overnight. CRP 175. Toxicology screen negative for opiates, positive for cannabinoids. Urinalysis showed leukocyte esterase trace and 3+ white cells. Urine culture is pending. Please see impressions and recommendations outlined above, which I have discussed with Dr. Patricia. Thanks for asking me to see Nilton Zhang in consultation. [id number]/[facility] [place] #: [id number] JOSTIN
--- NOTE | 2018-10-27 14:13 | TEE ---
Patient: KETTY KENDALL [facility] Rec#: [id number] : 1985 Date: 10/27/2018 Age: 33y Height: 177.8 cm / 70.0 in Weight: 86.18 kg / 189.9 lbs Sex: M BSA: 2.04 Room#: [facility] Type: Inpatient Referring: Benjamin Huntley MD Performing: Sixto Griffin MD Reading: Sixto Griffin MD Athletic Instructor: Toya Matthews [facility] Nurse: Michael Drummond RN Transesophageal Echocardiogram Indication: Bacteremia BP: 147/91 HR: 111 Rhythm: Tachycardia Findings History: Visited [place] recently, fever,2/6systolic murmur at right sternal border,? splenic infarct. Technical Comments: The study quality is good. Completed at 1227. Left Ventricle: The left ventricular chamber size is normal. Global left ventricular wall motion and contractility are within normal limits. There is normal left ventricular systolic function. The estimated ejection fraction is 55-60%. The assessment of diastolic function is non-diagnostic. Left Atrium: The left atrial chamber size is normal. There is no thrombus visualized in the left atrial appendage. Right Ventricle: The right ventricular cavity size is normal. The right ventricular global systolic function is normal. Right Atrium: The right atrial cavity size is normal. A patent foramen ovale is not demonstrated with color Doppler and agitated contrast. Aortic Valve: The aortic valve appears bicuspid. There is no evidence of aortic regurgitation. There is no evidence of aortic stenosis. A mass is visualized on the aortic valve which appears consistent with a vegetation. It is mobile and located on the ventricular side of the bicuspid aortic valve. Measures 1.0 x 0.5 cm. Seen superior to mitral valve. Mitral Valve: The mitral valve leaflets appear normal. There is a trace of mitral regurgitation. There is no evidence of mitral stenosis. A mass is visualized on the mitral valve which appears consistent with a vegetation. It is mobile and centrally located on the ventricular side of the mitral valve. It measures 1.5x0.3 cm. May be prominent chordae tendinae. Tricuspid Valve: The tricuspid valve leaflets are normal. There is trace to mild tricuspid regurgitation. The right ventricular systolic pressure is estimated at 33 mmHg. No pulmonary hypertension is noted. A mass is visualized on the tricuspid valve which appears consistent with a vegetation.It is mobile and located on the ventricular side of the septal leaftet. Measuring 1.7x0.3cm. Pulmonic Valve: The pulmonic valve appears normal. There is no evidence of pulmonic regurgitation. No vegetation is observed on the pulmonic valve. Pericardium: A pericardial effusion is visualized. A trivial pericardial effusion is visualized. Measuring 0.5cm at RA. RA invagination noted. Aorta: There is no dilation of the aortic root. There is no plaque visualized in the descending aorta. Pulmonary Artery: The main pulmonary artery appears normal. Venous: The bicaval view was obtained and appears normal. SVC well seen. IVC not well seen. The pulmonary veins appear normal in size. The flow pattern of the pulmonary veins appear normal. Limited views achieved. ALEK Procedures: History and physical as well as labs were reviewed. The patient was in a fasting state. Risks and benefits of the procedure, including alternatives, were discussed and written informed consent was obtained. The patient and/or their health care accounting representative expressed understanding of the procedure, risks and benefits. Baseline and continuous monitoring of blood pressure, heart rate, pulse oximetry and heart rhythm was performed throughout the procedure. The appropriate time-out procedure was performed as per [facility] protocol. The patient was placed in the left lateral decubitus position. The patient's posterior pharynx was anesthetized with 20ml of 2% viscous lidocaine. The patient received IV Midazolam with a total dose of 15mg. The patient received IV Fentanyl with a total dose of 100mcg. An oral bite block was inserted for protection of oral dentition. The multiplane transesophageal echocardiogram probe was inserted through the posterior oropharynx and advanced into the esophagus without difficulty. Multiple 2D images were obtained of the heart and its related structures. Color flow Doppler was used for evaluation. Spectral Doppler was also used. The atrial septum was interrogated with color flow Doppler. At the conclusion of the procedure the probe was removed with continuous suction without complications. The patient tolerated the procedure with no apparent complications. Conclusions There is normal left ventricular systolic function. The estimated ejection fraction is 55-60%. Global left ventricular wall motion and contractility are within normal limits. The aortic valve appears bicuspid. A mass is visualized on the bicuspid aortic valve which appears consistent with a vegetation. It is mobile and located on the ventricular side of the bicuspid aortic valve. Measures 1.0 x 0.5 cm. Seen superior to mitral valve. A mass is visualized on the mitral valve which appears consistent with a vegetation. It is mobile and centrally located on the ventricular side of the mitral valve. It measures 1.5x0.3 cm. May be prominent chordae tendinae. A mass is visualized on the tricuspid valve which appears consistent with a vegetation.It is mobile and located on the ventricular side of the septal leaftet. Measuring 1.7x0.3cm. A trivial pericardial effusion is visualized. It measures 0.5 cm adjacent to the right atriium. There is mild right atrial free wall invagination noted. No tamponade. There is no prior echocardiogram available to compare with at this time. Results discussed with the ordering physician, Dr. Pittman and attending physician, Dr. Patricia. Measurements Name Value Normal Range Ao root diameter (2D) 2.57 cm (2.1 - 3.5) Name Value Normal Range AV Vmax 1.65 m/sec - AV VTI 26.72 cm - AV peak gradient 11.07 mmHg - AV mean gradient 5.64 mmHg - LVOT diameter 2.38 cm - LVOT Vmax 0.91 m/sec - LVOT VTI 16.23 cm - LVOT peak gradient 3.28 mmHg - LVOT mean gradient 1.47 mmHg - SV LVOT 72.43 ml - LANIE (planimetry) 4.2 cm2 - LANIE (continuity Vmax) 2.46 cm2 - LANIE (continuity VTI) 2.71 cm2 - Name Value Normal Range MV Vmax 0.81 m/sec - MV VTI 15.23 cm - MV peak gradient 2.64 mmHg - MV mean gradient 1.14 mmHg - MV PHT 51.31 msec - MVA (PHT) 4.29 cm2 - MVA (continuity VTI) 4.75 cm2 - Name Value Normal Range TV Vmax 25 m/sec - TR Vmax 2.49 m/sec - TR peak gradient 24.74 mmHg - RVSP 33 mmHg -
[2018-10-27 14:22] LABS: Hematocrit 33 % (42-52); Hemoglobin 11.6 g/dl (14.0-18.0); Mean Corpuscular HGB Conc 36 g/dl (31-36); Mean Corpuscular Hemoglobin 32 pg (27-31); Mean Corpuscular Volume 89 fL (80-94); Mean Platelet Volume 9.2 fL (7.4-10.4); Platelet Count 123 10^3/ul (150-450); Red Blood Count 3.66 10^6/ul (4.00-5.40); Red Cell Distribution Width 12 % (10.5-15); White Blood Count 15.8 10^3/ul (3.5-10.8)
[2018-10-27 14:44] LABS: Albumin 2.9 g/dL (3.2-5.2); Albumin/Globulin Ratio 1.1 (1-3); BUN/Creatinine Ratio 18.8 (8-20); Calcium 8.1 mg/dL (8.6-10.3); EGFR African American 161.8 (>60); EGFR Non-African American 133.7 (>60); Globulin 2.7 g/dL (2-4); Indirect Bilirubin 0.5 mg/dL (0.3-1.0); Potassium 4.2 mmol/L (3.5-5.0); Total Bilirubin 1.2 mg/dL (0.2-1.0); Total Protein 5.6 g/dL (6.4-8.9)
[2018-10-27] MEDS: Acetaminophen TAB* 325 MG PO PRN (15:36)
[2018-10-27] MEDS ORDERED: Gadoteridol* (CONTRAST) 279.3 MG/ML 10 ML IV ONE (17:25)
--- NOTE | 2018-10-27 19:03 | CONS ---
AMENDED REPORT NOW INCLUDES DATE OF CONSULT NEUROLOGY CONSULTATION NOTE: DATE OF CONSULT: 10/27/18 CONSULTING PROVIDER: Dr. Patricia. REASON FOR CONSULT: Suspected stroke from septic emboli from endocarditis. CHIEF COMPLAINT: Left arm loss of dexterity. HISTORY OF PRESENT ILLNESS: Mr. Cade Holcomb is a pleasant 33-year-old right- handed man with no past medical history who presented to the ED on with complaints of fever and diarrhea. The patient recently went on a trip to [place] in August 2018. He denied any drug exposure. Following the trip, he developed symptoms of generalized body aches, nausea, fever. He works at [employer]. He was seen at urgent care a few times over the last month for high fevers. The patient developed left arm poor hand dexterity and weakness yesterday at approximately 8 a.m. when he woke up. He denied any visual disturbance. He does have occasional headaches that he described as bifrontal, nonradiating, usually 4/10 in severity. He has no trouble swallowing. He denied any slurred speech. The patient had a CT of the head on 10/26/18 that showed some hypodensity in the right parietal and frontal region bilaterally. There is suspicion for vasogenic edema. The patient had a transesophageal echo that revealed normal ejection fraction 55% to 60% with a mass visualized in the bicuspid aortic valve which appears consistent with vegetation. It is mobile. It is measuring 1 x 0.5 cm. There is also a mass in the mitral valve which appeared consistent with a vegetation, which is also mobile measuring 1.5 x 0.3 cm and there is also a mass in the tricuspid valve measuring 1.7 x 0.3 cm. There is also mild right atrial free wall invagination noted. Laboratory valve 15.8, hemoglobin 11, hematocrit of 33, platelet count of 123. D-dimer of 1050. INR 1.23. Sodium of 131, chloride of 99, glucose of 143. Ammonia of 66. ALT/AST 47/54. TSH is 2.14. Toxicology screen positive for cannabinoids. The patient had a CTA of the chest, abdomen, and pelvis which showed bilateral striated nephrogram, most likely pyelonephritis in this age group. Abnormal spleen with multiple areas of attenuation. Abnormal liver with scattered attenuation. All suggestive of septic emboli. PAST MEDICAL HISTORY: None. PAST SURGICAL HISTORY: None. HOME MEDICATIONS: He does not take any medications other than the recent antibiotic therapy. ALLERGIES: No known drug allergies. FAMILY HISTORY: No family history of stroke or seizures. SOCIAL HISTORY: The patient lives at home. Works at [employer] at [place]. He denied any tobacco use. He infrequently consumes alcohol. REVIEW OF SYSTEMS: A 14-point review of systems was obtained and otherwise negative except for what is mentioned in the HPI. PHYSICAL EXAMINATION: Vitals: Temperature of 101, heart rate of 107, respiratory rate of 19, oxygen saturation 98%, blood pressure 152/82. General: Ill-appearing man, in no acute distress. Head: Normocephalic, atraumatic. Eyes: Conjunctivae/corneas are clear. Neck is supple and symmetrical with no carotid bruits. No lymphadenopathy. No nuchal rigidity. Negative Brudzinski or Kernig sign. Lungs: Clear to auscultation bilaterally. Cardiovascular: Holosystolic 2/6 murmur. Extremities: Normal range of motion with no cyanosis. He does have distal embolization of the distal digits, especially on the left middle finger as well as the left toes. Lisch nodules. Skin: No skin lesions or laceration. Psych: Affect is broad and normal mood. Neurological Examination: Mental status: Awake, alert, oriented to person, place, time, and general circumstances. Cranial Nerves: Normal to confrontation testing bilaterally. Pupils are mid range and reactive to light. Extraocular muscles are intact. Sensation is intact in the forehead. There is no facial droop. Symmetrical palatal elevation. Normal strength against shoulder shrug resistance. Tongue is symmetrical and midline. Motor: He has pronator drift on the left upper extremity. However, normal bulk and tone throughout. He has 4/5 strength in the left arm, shoulder abduction, elbow flexion, and extension, but normal distal hand strength. He has normal strength throughout the upper and lower extremities. Reflexes: Brachioradialis 2/2, biceps 2/2, triceps 2/2, patella 2/2, ankle 1/1, plantar flexor/flexor. Sensation is intact to light touch throughout. Normal vibration and proprioception to great toes. Coordination: Normal [id number] on the right, but there is motor dysmetria on the left. Gait was not assessed as the patient was on a wheelchair on his way out to obtain an MRI. ASSESSMENT AND RECOMMENDATIONS: Mr. Cade Holcomb is a 33-year-old fairly healthy man who has suspected endocarditis and cerebral septic embolization. I suspect the patient has a right septic emboli involving the right frontoparietal hemisphere given his lateralizing left arm weakness. I do not recommend any anticoagulation or antiplatelet therapy given his risk of forming mycotic aneurysm and subsequently developing intracranial hemorrhage. Keep his blood pressure normotensive. Keep his blood glucose within range of 120 to less than 200. Please obtain an MRI brain with and without contrast to evaluate for the diffuse septic embolic strokes as well as to assess for any other possible lesion such as cerebral abscess or cerebritis. Neuro checks every 1 hour. Monitor for seizure activity. PT/OT/LEASING PROFESSIONAL evaluation and treatment. Continue supportive care. Defer antibiotic therapy to Dr. Huntley. I will discuss with the on-call cardiothoracic surgeon at [facility] for transfer. Dr. Patricia agreed that the patient needs to be transferred since he has had multiple embolic phenomenons and still has large multivalvular vegetations. Dr. Manzo (on-call CTS) agreed to accept the patient at [facility] at 1830 today. TIME SPENT: 50 critical care minutes was spent interviewing the patient, obtaining history, examining the patient, searching for facilities to help transfer the patient to and discussing the treatment plan with consulting providers and the primary team. [id number]/[facility] #: [id number] MTDD
[2018-10-28] MEDS: NS 0.9% 1000 ML** 1,000 ML IV SCH (00:08)
[2018-10-28] MEDS: Oxacillin(*) 2 GM in NS 0.9% 100 ML* 100 ML IVPB SCH ×3 (01:46→08:59)
[2018-10-28] MEDS ORDERED: Nitroglycerin TAB 0.4 MG* 0.4 MG TAB SL ONE (05:28)
[2018-10-28 05:33] LABS: Hematocrit 32 % (42-52); Hemoglobin 11.1 g/dl (14.0-18.0); Mean Corpuscular HGB Conc 35 g/dl (31-36); Mean Corpuscular Hemoglobin 31 pg (27-31); Mean Corpuscular Volume 89 fL (80-94); Mean Platelet Volume 9.4 fL (7.4-10.4); Platelet Count 168 10^3/ul (150-450); Red Blood Count 3.55 10^6/ul (4.00-5.40); Red Cell Distribution Width 13 % (10.5-15); White Blood Count 20.3 10^3/ul (3.5-10.8)
[2018-10-28 05:39] LABS: INR 1.17 (0.77-1.02)
[2018-10-28 05:45] LABS: Albumin 2.9 g/dL (3.2-5.2); BUN/Creatinine Ratio 23.9 (8-20); Calcium 8.3 mg/dL (8.6-10.3); EGFR African American 167.4 (>60); EGFR Non-African American 138.4 (>60); Indirect Bilirubin 0.5 mg/dL (0.3-1.0); Magnesium 2.3 mg/dL (1.9-2.7); Total Protein 5.9 g/dL (6.4-8.9)
[2018-10-28] MEDS ORDERED: Famotidine TAB* 20 MG PO SCH (09:00)
[2018-10-28] MEDS: Acetaminophen TAB* 325 MG PO PRN (09:04)
[2018-10-28 09:26] VITALS: BP 147/86
[2018-10-28] MEDS ORDERED: Vancomycin Trough Check NOTE FOLLOW UP ONE (09:30)
--- NOTE | 2018-10-28 11:33 | DS ---
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 Comes to ER 10/26 for complaints of fevers x 1-2 weeks. Associated with diarrhea. Noted to have taken a recent trip to [place] about 4 weeks ago but symptoms started 1.5 weeks back. no cough/sob/sputum. no blood in stool. no URI symptoms. No history of drug use. in ER he was febrile 102.8, tachycardic, BP 120s. He demonstrated mild Left upper ext 4/5 strength compared to other extremities as well as some mild blurry vision, without facial droop or speech changes. He had a bout of Afib in the ER which terminated. He was not requiring rate control agents and Anticoagulation was held given new CVA/ emboli. He had CT abd/chest/pelvis imaging demonstrating what appears to be hypodense lesions in spleen, liver and even in kidneys, which may be consistent with possible infarcts, as well as periportal edema, mild fluid around the gallbladder. A GB ultrasound showed mildly thickened GB, but no murphys sign, no obstruction noted, some perichole fluid+. He grew out MSSA in all blood cultures. A TTE/ALEK was performed demonstrating 1.0x0.5 cm vegetation on ventricular side of Bicuspid aortic valve more in LVOT, 1.5x0.3cm mitral valve vegetation on ventricular side, 1.7cmx0.3cm tricuspid valve, LV function intact without any significant valvular insufficiency. An MRI angel was performed 10/27 demonstrating multiple areas of diffuse restriction in the right cerebellum, right occipital and right parietal lobe and left occipital lobe, along with tiny areas in left parietal and left thalamus, all consistent with embolic phenomenon. This was discussed with Infectious disease and the family, decision made that based on active embolization, MSSA endocarditis and multiple vegetations >1cm that he would be appropriate for a CT surgery evaluation. Patient was accepted to [facility] in [facility] to CTICU under Dr Manzo. He was transferred 2/9 AM once a bed was available. Physical Exam on discharge - Vitals - tmax 100.2, HR 95 sinus, BP 147/86, on RA, sat 95% General: awake, alert, no distress, no diaphoresis Head: normocephalic, atraumatic HEENT: no pallor, no icterus, moist mucous membranes Neck: soft, supple, no jvd, no stridor CVS: mild tachy, regular, no murmur Resp: bilateral air entry, no rhales/wheeze/rhonchi, no acc muscle use Abdomen: soft, nontender, nondistended, bowel sounds+ Ext: pulses+, warm, no edema Skin: intact Neuro: awake, alert, oriented x3, Left UE 4/5, Left LE 5/5, RUE/RLE 5/5, no facial droop, pupils reactive, no speech changes noted Procedures/Imaging: CT brain, MRI brain, Transthoracic ECHO, Transesophageal ECHO Laboratory/Data: see chart Discharge Medications: Famotidine 20mg po daily, Oxacillin 2gm IV q4h Diet: Regular unrestricted Activity: bedrest Condition upon discharge: stable Disposition: transferred to higher level of care ([facility], [facility]) for Cardiothoracic surgery evaluation Code Status: full code Total Discharge time <30minutes Holden Patricia MD [employer] Deputy Director (Electronically Signed)
== END 2018-10-28 09:45 | disposition short-term general hospital (02) | DRG 871 ==
LOC: ED 13:11 → ICU 23:09
PROVIDERS: ADMIT Internal Medicine; ATTEND Internal Medicine Critical Care Medicine
PROC: B24BZZ4 Ultrasonography of Heart with Aorta, Transesophageal (ICD-10-PCS; principal; 2018-10-26)
DX: A41.01 Sepsis due to Methicillin susceptible Staphylococcus aureus (principal); I33.0 Acute and subacute infective endocarditis; G93.6 Cerebral edema; I63.9 Cerebral infarction, unspecified; I76 Septic arterial embolism; E87.1 Hypo-osmolality and hyponatremia; B95.61 Methicillin susceptible Staphylococcus aureus infection as the cause of diseases classified elsewhere; R19.7 Diarrhea, unspecified; I48.91 Unspecified atrial fibrillation; R41.0 Disorientation, unspecified; D73.5 Infarction of spleen; R74.8 Abnormal levels of other serum enzymes; H53.8 Other visual disturbances; R47.89 Other speech disturbances; K82.8 Other specified diseases of gallbladder; I08.3 Combined rheumatic disorders of mitral, aortic and tricuspid valves; D64.9 Anemia, unspecified; D69.6 Thrombocytopenia, unspecified; Z82.49 Family history of ischemic heart disease and other diseases of the circulatory system; Z87.891 Personal history of nicotine dependence; Z80.0 Family history of malignant neoplasm of digestive organs; Z72.89 Other problems related to lifestyle
CPT/HCPCS: 36415; 70450; 70553; 71046; 71275; 74177; 76705; 80048; 80053; 80074; 80076; 80307; 81003; 81015; 82140; 82533; 82550; 83036; 83605; 83735; 84443; 84484; 85025; 85027; 85060; 85379; 85610; 85730; 86140; 86705; 86709; 87040; 87077; 87086; 87150; 87186; 87205; 87340; 87522; 87641; 93005; 93312; 93325; 99156; 99157; 99285; A9270-GY; A9579; J0692; J1100; J2250; J2310; J2543; J2700; J3010; J3370; Q9967